=== PATIENT | male | born 1980 | race Caucasian/White ===

== ENCOUNTER → 2018-04-11 | Outpatient (CLI) | payer OTHER ==
--- NOTE | 2018-04-11 12:19 | CT ---
EXAMINATION TYPE: CT ChestAbdPelvis w con DATE OF EXAM: 04/11/2018 COMPARISON: 04/24/2016 HISTORY: Follow up testicular CA. CT DLP: 505.7 mGycm CONTRAST: CT scan of the chest, abdomen and pelvis is performed with Oral Contrast and with IV Contrast, patien t injected with 100 mL of Isovue 300. CT Chest: LUNGS: The lungs are clear and free of infiltrate or atelectasis. Stable 3 mm right upper lobe pulmon vidhi nodule. Stable 2 mm pulmonary nodule right lower lobe image 45. Right basilar linear atelectasis. No evidence for pulmonary mass. No pleural effusion or CT evidence of interstitial lung disease. MEDIASTINUM: Thoracic aorta is of normal caliber. The heart is not enlarged. No evidence for media stinal mass or adenopathy. HILAR STRUCTURES: No evidence for mass. No hilar adenopathy is appreciated. OTHER: Calcified left supraclavicular lymph nodes compatible with treated disease. CONTRAST CT ABDOMEN AND PELVIS FINDINGS: LIVER/GB: No calcified gallstones. No space occupying hepatic lesion. Biliary tree is of normal ca liber. PANCREAS: No inflammation. No distinct mass. SPLEEN: No splenic enlargement. No lesion seen. ADRENALS: No nodule. No thickening. KIDNEYS/BLADDER: No hydronephrosis. No nephrolithiasis. No disctinct renal mass. BOWEL: Normal appendix. Normal bowel caliber. No inflammation. GENITAL ORGANS: No gross abnormality. LYMPH NODES: Posttreatment calcified left para-aortic lymph nodes. No new adenopathy AORTA: No significant abnormality. OSSEOUS STRUCTURES: No significant abnormality is seen. OTHER: No significant additional abnormality is seen. IMPRESSION: 1. Calcified lymph nodes compatible with treated disease. 2. Stable right-sided pulmonary nodules. 3. no new adenopathy or new nodules .
== END ==
LOC: RADCTMAIN 10:09
PROVIDERS: ATTEND Internal Medicine Hematology & Oncology
DX: C62.90 Malignant neoplasm of unspecified testis, unspecified whether descended or undescended (principal); R91.8 Other nonspecific abnormal finding of lung field; I89.8 Other specified noninfective disorders of lymphatic vessels and lymph nodes
CPT/HCPCS: 71260; 74177; Q9967

== ENCOUNTER → 2018-04-21 | Outpatient (CLI) | payer OTHER ==
--- NOTE | 2018-04-21 15:47 | NM ---
EXAMINATION TYPE: NM bone scan whole body DATE OF EXAM: 04/21/2018 COMPARISON: 05/05/2015 HISTORY: Testicular cancer Delayed whole-body scanning was performed following the injection of 24.4 mCi Tc 99m MDP. Images acq uired 3.5 hours post injection. FINDINGS: Faint abnormal uptake involving the lower thoracic spine likely degenerative. There is a focal area o f abnormal uptake involving distal diaphysis of the right femur. Abnormal uptake involving the left knee and foot likely arthritic. IMPRESSION: 1. Stable nonspecific uptake involving the distal diaphysis of the right femur for which x-ray correl ation is recommended. 2. No new area of suspicious abnormal uptake.
== END | disposition home or self-care (01) ==
LOC: RADNMMAIN 10:31
PROVIDERS: ATTEND Internal Medicine Hematology & Oncology
DX: C62.90 Malignant neoplasm of unspecified testis, unspecified whether descended or undescended (principal); R93.7 Abnormal findings on diagnostic imaging of other parts of musculoskeletal system
CPT/HCPCS: 78306; A9503

== ENCOUNTER 2018-08-31 15:57 | Emergency (ER) | payer BC, OTHER ==
[2018-08-31 16:02] VITALS: BP 121/75; PULSE 99; RESP 18; TEMP 98.8
--- NOTE | 2018-08-31 16:22 | ED ---
General Adult HPI - General Chief complaint: Extremity Problem,Nontraumatic Stated complaint: Hand Swelling Time Seen by Provider: 08/31/18 16:05 Source: patient, RN notes reviewed, old records reviewed Mode of arrival: ambulatory Limitations: no limitations - History of Present Illness Initial comments: 48-year-old male presents for evaluation of left hand swelling. Symptoms began over the past 24 hours. He developed some erythema and swelling on the dorsal aspect of his left hand. Minimal pain with range of motion, minimal pain in the area of erythema. No fever or chills. Patient's denies any specific injury. He does state he was at work, does use his hands quite extensively at his work. He may have overused this hand. No IV drug use. Remote history of testicular cancer, not on chemotherapy. - Related Data Previous Rx's Medication Instructions Recorded Ibuprofen [Motrin] 600 mg PO Q8HR PRN #24 tab 08/31/18 Allergies Allergy/AdvReac Type Severity Reaction Status Date / Time aripiprazole [From Abilify] Allergy Unknown Verified 08/31/18 16:02 Review of Systems ROS Statement: Those systems with pertinent positive or pertinent negative responses have been documented in the HPI. ROS Other: All systems not noted in ROS Statement are negative. Past Medical History Past Medical History: Asthma, Blood Disorder, Cancer Additional Past Medical History / Comment(s): anemia, testicular cancer with Mets to Lt side of body lymph nodes. Satge 3. Finished Chemo 03/26/2014. History of Any Multi-Drug Resistant Organisms: None Reported Additional Past Surgical History / Comment(s): mediport insertion and removed. testicle removed, no surgery for lymph node Past Anesthesia/Blood Transfusion Reactions: No Reported Reaction Past Psychological History: Anxiety Smoking Status: Current every day smoker Past Alcohol Use History: None Reported Past Drug Use History: None Reported - Past Family History Father Family Medical History: No Reported History General Exam Limitations: no limitations General appearance: alert, in no apparent distress Head exam: Present: atraumatic, normocephalic Eye exam: Present: normal appearance, PERRL ENT exam: Present: normal exam Neck exam: Present: normal inspection. Absent: tenderness, meningismus Respiratory exam: Present: normal lung sounds bilaterally. Absent: respiratory distress, wheezes Cardiovascular Exam: Present: regular rate, normal rhythm GI/Abdominal exam: Present: soft Extremities exam: Present: other (Left hand: Mild erythema on the dorsal aspect of the left hand, no skin breakdown, mild soft tissue swelling. Normal range of motion of the fingers. 2+ radial pulse, normal cap refill in all digits.) Course Vital Signs 08/31/18 15:59 Temperature 98.8 F Pulse Rate 99 Respiratory 18 Rate Blood Pressure 121/75 O2 Sat by Pulse 98 Oximetry Medical Decision Making - Medical Decision Making 38-year-old male presenting with soft tissue swelling and erythema on the dorsal aspect left hand. Range of motion of fingers is normal. Patient has no fever, no subjective fever or chills. He does report some overuse. There is no skin breakdown, no induration. I did give the patient anticipatory guidance regarding the possibility of cellulitis or tenosynovitis. I have low suspicion for either pathology. I suspect this is more related to tendinitis, or overuse. Patient will monitor the area of erythema, he will rest and elevate this hand. He will apply ice. He will return with the development of any worsening swelling, induration, pain with range of motion of the fingers, fever or chills. He will follow-up with his primary care physician within the next 48 hours for reevaluation. Disposition Clinical Impression: Tendinitis Disposition: HOME SELF-CARE Condition: Good Instructions (If sedation given, give patient instructions): Tendinitis (ED) Prescriptions: Ibuprofen [Motrin] 600 mg PO Q8HR PRN #24 tab PRN Reason: Pain Is patient prescribed a controlled substance at d/c from ED?: No Referrals: Arian Nam MD [Primary Care Provider] - 1-2 days Time of Disposition: 16:21
== END 2018-08-31 16:37 | disposition home or self-care (01) ==
LOC: EC 15:57
DX: M77.8 Other enthesopathies, not elsewhere classified (principal); F17.200 Nicotine dependence, unspecified, uncomplicated; Z88.8 Allergy status to other drugs, medicaments and biological substances; Z85.47 Personal history of malignant neoplasm of testis; Z92.21 Personal history of antineoplastic chemotherapy; Z85.89 Personal history of malignant neoplasm of other organs and systems; Z90.79 Acquired absence of other genital organ(s)
CPT/HCPCS: 99283

== ENCOUNTER 2018-09-15 19:25 | Emergency (ER) | payer BC ==
[2018-09-15 19:52] VITALS: BP 110/71; PULSE 69; RESP 18; TEMP 98.1
--- NOTE | 2018-09-15 20:26 | ED ---
Extremity Problem HPI - General Chief complaint: Extremity Problem,Nontraumatic Stated complaint: Hand Pain Time Seen by Provider: 09/15/18 19:57 Source: patient Mode of arrival: ambulatory - History of Present Illness Initial comments: 38-year-old male presenting for left hand pain. Patient states he's recently diagnosed with tendinitis, he states at that time he had significant redness and swelling of the left hand. Patient states this has since subsided. Patient states he does use his hands often for work. Patient denies numbness tingling loss sensation pallor or coolness of the extremity. Patient denies any swelling of the fingers 6 flexed or extended positioning. Patient denies any cuts or abrasions of the hand he denies any erythema. Denies any swelling. Patient states that when he ranges at the left hand he experiences pain. Patient states at times his paresthesias of the hand he states he has had this for years he placed his carpal tunnel. Patient denies any injury to the neck or back headache dizziness. Patient denies any recent head injury. Remaining review of systems negative. Upon arrival patient appears well no signs of acute distress. Patient denies any significant trauma or injury to the hand. Patient states he was told if the pain persisted to present to the ER. Patient appears well upon arrival no signs of acute distress. - Related Data Previous Rx's Medication Instructions Recorded Ibuprofen [Motrin] 600 mg PO Q8HR PRN #24 tab 08/31/18 Allergies Allergy/AdvReac Type Severity Reaction Status Date / Time aripiprazole [From Abilify] Allergy Unknown Verified 09/15/18 19:53 Review of Systems ROS Statement: Those systems with pertinent positive or pertinent negative responses have been documented in the HPI. ROS Other: All systems not noted in ROS Statement are negative. Past Medical History Past Medical History: Asthma, Blood Disorder, Cancer Additional Past Medical History / Comment(s): anemia, testicular cancer with Mets to Lt side of body lymph nodes. Satge 3. Finished Chemo 03/26/2014. History of Any Multi-Drug Resistant Organisms: None Reported Additional Past Surgical History / Comment(s): mediport insertion and removed. left testicle removed, hernia repair Past Anesthesia/Blood Transfusion Reactions: No Reported Reaction Past Psychological History: Anxiety Smoking Status: Current every day smoker Past Alcohol Use History: None Reported Past Drug Use History: None Reported - Past Family History Father Family Medical History: No Reported History General Exam - General Exam Comments Initial Comments: General: The patient is awake and alert, in no distress, and does not appear acutely ill. Eye: Pupils are equal, round and reactive to light, extra-ocular movements are intact. No nystagmus. There is normal conjunctiva bilaterally. No signs of icterus. Ears, nose, mouth and throat: There are moist mucous membranes and no oral lesions. Neck: The neck is supple, there is no tenderness or JVD. Cardiovascular: There is a regular rate and rhythm. No murmur, rub or gallop is appreciated. Respiratory: Lungs are clear to auscultation, respirations are non-labored, breath sounds are equal. No wheezes, stridor, rales, or rhonchi. Musculoskeletal: Inspection of the hands bilaterally there is no soft tissue swelling erythema, they appear equal. Patient is able to fully range at the MTP DIP MPTP joints of all digits of the left and right hand equal comparison bilaterally. With full strength. Sensation intact of the hands both dorsal and ventral aspect equal comparison bilaterally. Patient has mild tenderness to palpation over the extensor aspect of the left hand. Radial pulses equal bilaterally 2+. Capillary refill < 2 seconds. Neurological: A&O x 3. CN II-XII intact, There are no obvious motor or sensory deficits. Coordination appears grossly intact. Speech is normal. Skin: Skin is warm and dry and no rashes or lesions are noted. Psychiatric: Cooperative, appropriate mood & affect, normal judgment. Course Vital Signs 09/15/18 19:48 Temperature 98.1 F Pulse Rate 69 Respiratory 18 Rate Blood Pressure 110/71 O2 Sat by Pulse 96 Oximetry Medical Decision Making - Medical Decision Making Well-appearing 38-year-old male presented for left hand pain. Patient recently diagnosed with tendinitis. Patient states he frequently uses hands. Patient has no significant findings on examination. Patient is tender to the extensor aspect of his left hand. There is no erythema no soft tissue swelling. No fusiform swelling of the digits and no ticks flexion. Patient is neurovascularly intact. Patient appears well patient does use hands frequently. At this time feel patient has overuse injury. Possible continued telemetry tendinitis this does not appear infectious. Patient denies constitutional symptoms no infectious symptoms on examination. Patient was educated on the signs of infectious tendinitis and instructed to return if the symptoms arise. Patient be discharged with outpatient orthopedic surgery evaluation of persistent tendinitis. Patient is agreeable to care plan as well as discharge denies questions at this time. Disposition Clinical Impression: Right hand pain, Overuse injury Disposition: HOME SELF-CARE Condition: Good Instructions (If sedation given, give patient instructions): Tendinitis (ED) Additional Instructions: Please use medication as discussed. Please follow-up with family doctor in the next 2 days. Please follow up with orthopedic surgery if symptoms persist. Please return to emergency room if the symptoms increase or worsen or for any other concerns. Is patient prescribed a controlled substance at d/c from ED?: No Referrals: Arian Nam MD [Primary Care Provider] - 1-2 days Hoang Willams DO [Doctor of Osteopathic Medicine] - 1-2 days Time of Disposition: 20:26
== END 2018-09-15 20:37 | disposition home or self-care (01) ==
LOC: EC 19:25
DX: M79.641 Pain in right hand (principal); M79.642 Pain in left hand; F17.200 Nicotine dependence, unspecified, uncomplicated; Z85.47 Personal history of malignant neoplasm of testis; Z85.858 Personal history of malignant neoplasm of other endocrine glands; Z92.21 Personal history of antineoplastic chemotherapy; Z88.8 Allergy status to other drugs, medicaments and biological substances; X58.XXXA Exposure to other specified factors, initial encounter
CPT/HCPCS: 99282

== ENCOUNTER → 2019-04-07 | Outpatient (CLI) | payer OTHER ==
--- NOTE | 2019-04-07 14:13 | XR ---
Lumbosacral spine HISTORY: Low back pain 5 views of the lumbosacral spine Correlation to CT scan dated 04/11/2018, bone scan 04/21/2018 There are 4 nonrib-bearing lumbar vertebral segments. Spina bifida occulta noted at S1, transitional segment. There is no evident spondylolysis. Lumbar vertebral bodies show preserved height and bone mi neralization. Retrolisthesis grade 1 L1-2. There is loss of disc height present at L1-2 with associat ed spondylosis. Sclerosis in the posterior elements of the lower lumbar spine compatible with facet a rthropathy. Vascular calcifications are present in the pelvis. IMPRESSION: Degenerative disc disease and facet arthropathy.
== END | disposition home or self-care (01) ==
LOC: RADXRMAIN 12:06
PROVIDERS: ATTEND Family Medicine
DX: M51.36 Other intervertebral disc degeneration, lumbar region (principal); M46.96 Unspecified inflammatory spondylopathy, lumbar region
CPT/HCPCS: 72110

== ENCOUNTER 2022-02-03 17:24 | Emergency (ER) | payer OTHER ==
[2022-02-03] MEDS ORDERED: PROPARACAINE 0.5% OPHTH DROPS 15 ML BTL LEFT EYE STA (18:07)
[2022-02-03 18:08] VITALS: BP 131/81; PULSE 70; RESP 16; TEMP 97.9
[2022-02-03] MEDS ORDERED: FLUORESCEIN STRIPS 1 MG STRIP LEFT EYE ONE (18:21)
[2022-02-03] MEDS ORDERED: ERYTHROMYCIN 5 MG/GM OPHTH OINT 1 GM TUBE LEFT EYE SCH (18:30)
--- NOTE | 2022-02-03 18:33 | ED ---
General Adult HPI - General Chief complaint: Eye Problems Stated complaint: lt eye Source: patient, RN notes reviewed, old records reviewed Mode of arrival: ambulatory Limitations: no limitations - History of Present Illness Initial comments: 41-year-old male with left eye irritation after drywalling. Patient please take its of drywall dust into his left eye. This is worsened in pain over the past 12-24 hours. No other injury to the eye. No visual impairment. - Related Data Previous Rx's Medication Instructions Recorded Ibuprofen [Motrin] 600 mg PO Q8HR PRN #24 tab 08/31/18 Ibuprofen [Motrin] 600 mg PO Q8HR PRN #24 tab 02/03/22 Allergies Allergy/AdvReac Type Severity Reaction Status Date / Time aripiprazole [From Abilify] Allergy Unknown Verified 02/03/22 18:00 Review of Systems ROS Statement: Those systems with pertinent positive or pertinent negative responses have been documented in the HPI. ROS Other: All systems not noted in ROS Statement are negative. Past Medical History Past Medical History: Asthma, Blood Disorder, Cancer Additional Past Medical History / Comment(s): anemia, testicular cancer with Mets to Lt side of body lymph nodes. Satge 3. Finished Chemo 03/26/2014. History of Any Multi-Drug Resistant Organisms: None Reported Additional Past Surgical History / Comment(s): mediport insertion and removed. left testicle removed, hernia repair Past Anesthesia/Blood Transfusion Reactions: No Reported Reaction Past Psychological History: Anxiety Smoking Status: Current every day smoker Past Alcohol Use History: None Reported Past Drug Use History: Marijuana - Past Family History Father Family Medical History: No Reported History General Exam Limitations: no limitations General appearance: alert, in no apparent distress Head exam: Present: atraumatic, normocephalic Eye exam: Present: PERRL, EOMI, conjunctival injection, other ( uptake at the 10 o'clock position of the cornea, no corneal laceration, negative Joleen's) Neck exam: Present: normal inspection. Absent: tenderness, meningismus Respiratory exam: Present: normal lung sounds bilaterally. Absent: respiratory distress, wheezes Cardiovascular Exam: Present: regular rate, normal rhythm GI/Abdominal exam: Present: soft, distended Neurological exam: Present: alert, oriented X3, CN II-XII intact, normal gait. Absent: motor sensory deficit Psychiatric exam: Present: normal affect, normal mood Skin exam: Present: warm, dry, intact Course Vital Signs 02/03/22 18:00 Temperature 97.9 F Pulse Rate 70 Respiratory 16 Rate Blood Pressure 131/81 O2 Sat by Pulse 98 Oximetry Medical Decision Making - Medical Decision Making 41-year-old male with corneal abrasion, no laceration negative Joleen's. Patient given erythromycin ointment to the emergency department, instructed take anti-inflammatories for pain. Given ophthalmology follow-up. Disposition Clinical Impression: Corneal abrasion Disposition: HOME SELF-CARE Condition: Good Instructions (If sedation given, give patient instructions): Corneal Abrasion (ED) Prescriptions: Ibuprofen [Motrin] 600 mg PO Q8HR PRN #24 tab PRN Reason: Pain Is patient prescribed a controlled substance at d/c from ED?: No Referrals: Arian Nam MD [Primary Care Provider] - 1-2 days Eugenio Phillips MD [STAFF PHYSICIAN] - 1-2 days Time of Disposition: 18:33
== END 2022-02-03 18:42 | disposition home or self-care (01) ==
LOC: EC 17:24
DX: S05.02XA Injury of conjunctiva and corneal abrasion without foreign body, left eye, initial encounter (principal); F12.90 Cannabis use, unspecified, uncomplicated; F41.9 Anxiety disorder, unspecified; F17.200 Nicotine dependence, unspecified, uncomplicated; J45.909 Unspecified asthma, uncomplicated; Z88.8 Allergy status to other drugs, medicaments and biological substances; X58.XXXA Exposure to other specified factors, initial encounter
CPT/HCPCS: 99283

== ENCOUNTER 2024-02-10 12:09 | Emergency (ER) | payer SELFPAY ==
[2024-02-10 12:22] VITALS: TEMP 98
[2024-02-10] MEDS: TETRACAINE 0.5% OPHTH (PF) DROPS 4 ML BTL LEFT EYE STA (12:32)
[2024-02-10] MEDS: FLUORESCEIN STRIPS 1 MG STRIP LEFT EYE ONE (12:33)
--- NOTE | 2024-02-10 12:35 | ED ---
General Adult HPI - General Chief complaint: Eye Problems Stated complaint: eye injury Time Seen by Provider: 02/10/24 12:21 Source: patient, RN notes reviewed, old records reviewed Mode of arrival: ambulatory Limitations: no limitations - History of Present Illness Initial comments: Patient is a 43-year-old male who presents emergency department after suffering an injury to his left eye. Patient states that he struck his left eye on a piece of plywood. States he feels like something is in his eye on the outside or possible abrasion. Has a history of corneal abrasion states it feels like that. Presents emergency department for evaluation. Denies any worsening blurry vision. Wears glasses at baseline. Complains of pain on the surface of the left eye. Denies any significant blurry vision. Is up-to-date on tetanus. Denies any sensitivity to light. Presents for further evaluation at this time.Denies pain with movement of the left eye. - Related Data Previous Rx's Medication Instructions Recorded Ibuprofen [Motrin] 600 mg PO Q8HR PRN #24 tab 08/31/18 Ibuprofen [Motrin] 600 mg PO Q8HR PRN #24 tab 02/03/22 Ciprofloxacin Ophth Soln [Ciloxan 2 drops BOTH EYES Q6HR 7 Days #4 ml 02/10/24 0.3% Ophth Soln] Allergies Allergy/AdvReac Type Severity Reaction Status Date / Time aripiprazole [From Abilify] Allergy Unknown Verified 02/10/24 12:22 Review of Systems ROS Statement: Those systems with pertinent positive or pertinent negative responses have been documented in the HPI. Review of Systems: CONST: Denies fever EYES: Endorses left eye pain ENT: Denies nasal congestion C/V: Denies Chest pain RESP: Denies shortness of breath GI: Denies abdominal pain : Denies dysuria SKIN: Denies rash. MSK: Denies joint pain. NEURO: Denies headache ROS Other: All systems not noted in ROS Statement are negative. Past Medical History Past Medical History: Asthma, Blood Disorder, Cancer Additional Past Medical History / Comment(s): anemia, testicular cancer with Mets to Lt side of body lymph nodes. Satge 3. Finished Chemo 03/26/2014. History of Any Multi-Drug Resistant Organisms: None Reported Additional Past Surgical History / Comment(s): mediport insertion and removed. left testicle removed, hernia repair Past Anesthesia/Blood Transfusion Reactions: No Reported Reaction Past Psychological History: Anxiety Smoking Status: Current every day smoker Past Alcohol Use History: None Reported Past Drug Use History: Marijuana - Past Family History Father Family Medical History: No Reported History General Exam - General Exam Comments Initial Comments: General: Appears in no acute distress. HEAD: Normal with no signs of head trauma. EYES: EOMI. PERRLA. Pupils are 2 to 3 mm and equal bilaterally. No significant conjunctival injection. Visual acuity 20/20 in the right eye and 20/30 in the left eye.No evidence of globe rupture. ENT: Hearing grossly intact. RESPIRATORY: No respiratory distress. C/V: Regular rate and rhythm. ABD: Abdomen is nondistended. EXT: No obvious deformity. SKIN: No rashes or lesions observed on exposed skin. NEURO: Alert and oriented. Limitations: no limitations Course Vital Signs 02/10/24 12:20 Temperature 98 F Pulse Rate 54 L Respiratory 18 Rate Blood Pressure 122/74 O2 Sat by Pulse 98 Oximetry Medical Decision Making - Medical Decision Making Was pt. sent in by a medical professional or institution (Dr. PA, POWERED BRIDGE SPECIALIST, urgent care, hospital, or alf...) When possible be specific @ -No Did you speak to anyone other than the patient for history (EMS, parent, family, police, friend...)? What history was obtained from this source @ -No Did you review nursing and triage notes (agree or disagree)? Why? @ -I reviewed and agree with nursing and triage notes Were old charts reviewed (outside hosp., previous admission, EMS record, old EKG, old radiological studies, urgent care reports/EKG's, alf records)? Report findings @ -No old charts were reviewed Differential Diagnosis (chest pain, altered mental status, abdominal pain women, abdominal pain men, vaginal bleeding, weakness, fever, dyspnea, syncope, headache, dizziness, GI bleed, back pain, seizure, CVA, palpatations, mental health, musculoskeletal)? @ -Corneal abrasion, intraocular foreign body, globe rupture. This list is not all inclusive. EKG interpreted by me (3pts min.). @ -None done X-rays interpreted by me (1pt min.). @ -None done CT interpreted by me (1pt min.). @ -None done U/S interpreted by me (1pt. min.). @ -None done What testing was considered but not performed or refused? (CT, X-rays, U/S, labs)? Why? @ -None What meds were considered but not given or refused? Why? @ -None Did you discuss the management of the patient with other professionals (professionals i.e. , PA, POWERED BRIDGE SPECIALIST, lab, RT, psych nurse, geriatric social work professor, investment specialist, teacher, safety officer, special education case manager)? Give summary @ -No Was smoking cessation discussed for >3mins.? @ -No Was critical care preformed (if so, how long)? @ -No Were there social determinants of health that impacted care today? How? (Homelessness, low income, unemployed, alcoholism, drug addiction, transportation, low edu. Level, literacy, decrease access to med. care, group home, rehab)? @ -No Was there de-escalation of care discussed even if they declined (Discuss DNR or withdrawal of care, Hospice)? DNR status @ -No What co-morbidities impacted this encounter? (DM, HTN, Smoking, COPD, CAD, Cancer, CVA, ARF, Chemo, Hep., AIDS, mental health diagnosis, sleep apnea, morbid obesity)? @ -None Was patient admitted / discharged? Hospital course, mention meds given and route, prescriptions, significant lab abnormalities, going to OR and other pertinent info. @ -Based on the patient's presentation and physical exam, patient presents emergency department complaining of left eye pain. Visual acuity not sig nificantly affected. Worse this is at baseline. Has a history of corneal abrasion and feels like it is similar to that episode. Is up-to-date on tetanus. Patient's eye will be numbed with tetracaine drops and stained with fluorescein stain. Slit-lamp exam as well as fluorescein staining will be completed for evaluation. Vitals within acceptable limits. He was in agreement this plan. No evidence of globe rupture on exam. Fluorescein staining revealed a corneal abrasion at the 3 o'clock position on the patient's eye. Slit-lamp exam was unremarkable other than for some mild conjunctiva injection. I spoke with the patient. He will be discharged home on ciprofloxacin eyedrops. Patient is up to date tetanus and does not require booster. He will be given follow-up with ophthalmology which I recommend he follow-up within the next 5 to 7 days. He was in agreement this plan. He will be discharged home with a prescription for the ciprofloxacin eyedrops. Can use [id number] analgesia control. I will provide the patient with a prescription for ciprofloxacin eyedrops. I instructed the patient to follow up with their PCP in the next 1-3 days. I provided contact information for follow up with ophthalmology. I explained that the patient should return to the emergency department if they experience any worsening symptoms. Strict return precautions were discussed with the patient. The patient expressed understanding of these instructions. I answered all questions that the patient had. The patient was discharged home in good condition with their prescriptions and follow up information. Does not wear contact lenses. Undiagnosed new problem with uncertain prognosis? @ -No Drug Therapy requiring intensive monitoring for toxicity (Heparin, Nitro, Insulin, Cardizem)? @ -No Were any procedures done? @ -No Diagnosis/symptom? @ -Corneal abrasion Acute, or Chronic, or Acute on Chronic? @ -Acute Uncomplicated (without systemic symptoms) or Complicated (systemic symptoms)? @ -Uncomplicated Side effects of treatment? @ -None Exacerbation, Progression, or Severe Exacerbation] @ -No Poses a threat to life or bodily function? @ -No Disposition Clinical Impression: Corneal abrasion, left Disposition: HOME SELF-CARE Condition: Good Instructions (If sedation given, give patient instructions): Corneal Abrasion (ED) Prescriptions: Ciprofloxacin Ophth Soln [Ciloxan 0.3% Ophth Soln] 2 drops BOTH EYES Q6HR 7 Days #4 ml Is patient prescribed a controlled substance at d/c from ED?: No Referrals: None,Stated [Primary Care Provider] - 1-2 days Gael Ochoa MD [STAFF PHYSICIAN] - 1-2 days Time of Disposition: 13:09
[2024-02-10] MEDS: CIPROFLOXACIN 0.3% OPHTH SOLN 5 ML BTL LEFT EYE STA (13:26)
[2024-02-10 13:30] VITALS: BP 118/62; PULSE 74; RESP 20
== END 2024-02-10 13:29 | disposition home or self-care (01) ==
LOC: EC 12:09
CPT/HCPCS: 99283